=== PATIENT | male | born 1945 | race Caucasian/White ===

== ENCOUNTER → 2021-10-18 12:39 | Outpatient (CLI) | payer OTHER, SELFPAY ==
--- NOTE | 2021-10-18 | DI.ECHO.S_ITS ---
[facility]---------+ [facility] +---------+ : : [address] : [place] : : : : [id number] : : : : Phone: [phone] +---------+ Echocardiogram Report + + :Name: KEM LOVE Study Date: 10/18/2021 Height: 67 in : :[facility] ReadingLocation: Weight: 194 lb : : Gender: Male BSA: 2.0 m2 : :: 1945 Age: 76 yrs BP: 140/78 mmHg: :Reason For Study: HISTORY OF STENT PLACEMENT, BYPASS, DYSPNEA : :Ordering Physician: BERNARD, : : Performed By: Carmita Li : :Referring: MICHAEL WAGNER : + + Interpretation Summary The left ventricle is mild to moderately dilated. 6.1 cm in diameter. Previously 5.5 cm in diameter. Left ventricular ejection fraction is estimated to be 40 +/- 5%. Previous LVEF about 45 to 50%. Compared to the prior exam, the left ventricular function is reduced. There is akinesis of posterior lateral wall with severe hypokinesis of basal to mid inferior wall as well as basal to mid anterolateral wall. No significant change in wall motion abnormalities however rest of the LV segments less vigorous than the previous study. The right ventricle is grossly normal size. Right ventricular systolic function is mildly reduced. Suspect PMD of posterior mitral leaflet. Eccentric moderate mitral regurgitation. Mitral regurgitation has increased from the previous study. There is discrete nodular thickening of the non- coronary cusp. Decrease movement of noncoronary cusp however no significant aortic stenosis seen. Nodular density of noncoronary cusp seen in the previous study as well. The IVC is of normal diameter and collapses greater than 50% with a sniff. This suggests a low right atrial pressure of 3 mm Hg. Procedure: A two-dimensional transthoracic echocardiogram with color flow and Doppler was performed. The study quality was technically adequate. Comparison is made with the echocardiogram of 04/25/2016. The patient was in sinus rhythm with heart rates between 54-60 bpm during the exam. Left Ventricle: The left ventricle is mild-moderately dilated. There is normal left ventricular wall thickness. There is no thrombus. Left ventricular ejection fraction is estimated to be 40 +/- 5%. Compared to the prior exam, the left ventricular function is reduced. There is akinesis of posterior lateral wall with severe hypokinesis of basal to mid inferior wall as well as basal to mid anterolateral wall. No significant change in wall motion abnormalities however rest of the LV segments less vigorous than the previous study. Diastolic parameters suggest a relaxation abnormality of the left ventricle, consistent with probable normal filling pressures. Right Ventricle: The right ventricle is grossly normal size. Right ventricular systolic function is mildly reduced. Atria: The left atrium is mildly dilated. Right atrial size is normal. There is no Doppler evidence for an interatrial shunt. Mitral Valve: The mitral valve leaflets are mildly calcified. There is mild mitral annular calcification. Suspect PMD of posterior mitral leaflet. Eccentric moderate mitral regurgitation. Mitral regurgitation has increased from the previous study. There is moderate mitral regurgitation. The mitral regurgitant jet is eccentrically directed. Aortic Valve: The aortic valve is mildly calcified. There is discrete nodular thickening of the non- coronary cusp. Decrease movement of noncoronary cusp however no significant aortic stenosis seen. Nodular density of noncoronary cusp seen in the previous study as well. There is no hemodynamically significant valvular aortic stenosis. No aortic regurgitation is present. Tricuspid Valve: The tricuspid valve is normal in structure and function. There is mild tricuspid regurgitation. Pulmonary artery pressures cannot be estimated because of the lack of a measurable TR jet velocity. Pulmonic Valve: The pulmonic valve is not well seen, but is grossly normal. There is trace pulmonic regurgitation. Great Vessels: The aortic root is normal size. The dimensions of the ascending aorta are normal. The aortic arch could not be visualized. The IVC is of normal diameter and collapses greater than 50% with a sniff. This suggests a low right atrial pressure of 3 mm Hg. Pericardium/ Pleura There is no pericardial effusion. There is no pleural effusion. MMode/2D Measurements & Calculations LVIDd: 6.1 cm LVOT diam: 2.1 cm LVIDs: 5.0 cm Ao root diam: 3.3 cm FS: 18.5 % asc Aorta Diam: 3.5 cm IVSd: 0.95 cm LVPWd: 0.97 cm LV hancock. diameter/BSA (cm/m^2): 3.1 LV sys. diameter/BSA (cm/m^2): 2.5 LA A2 area: 21.0 cm2 RA long axis: 5.4 cm LA A4 area: 19.8 cm2 RA area: 18.9 cm2 LA length (vol): 5.6 cm RA vol: 56.4 ml LA vol: 63.2 ml RA : 28.2 ml/m2 LA vol index: 31.7 ml/m2 IVC diam: 2.0 cm TAPSE: 1.5 cm Doppler Measurements & Calculations Ao V2 max: 165.4 cm/sec LVOT Max David: 74.3 cm/sec Ao V2 mean: 122.9 cm/sec LV V1 max P.2 mmHg Ao max P.9 mmHg LV V1 VTI: 16.6 cm Ao mean P.6 mmHg PREM(I,D): 1.6 cm2 Ao V2 VTI: 36.0 cm PREM(V,D): 1.6 cm2 sev ratio: 0.46 PREM indexed to BSA (cm^2/m^2): 0.82 MV E max david: 56.8 cm/sec PA V2 max: 81.9 cm/sec MV A max david: 84.6 cm/sec PA V2 mean: 55.6 cm/sec MV E/A: 0.67 PA mean P.4 mmHg Med Peak E' David: 6.1 cm/sec PA pr(Accel): 22.5 mmHg E/E' med: 9.3 Lat Peak E' David: 7.6 cm/sec E/E' lat: 7.5 E/e' average: 8.4 MV dec time: 0.26 sec SV(LVOT): 59.2 ml Reading Physician:03:28 PM
== END ==
PROVIDERS: PCP Family Medicine
DX: R06.00 Dyspnea, unspecified (principal); I51.7 Cardiomegaly; I34.0 Nonrheumatic mitral (valve) insufficiency
CPT/HCPCS: 93306

== ENCOUNTER → 2023-06-21 14:14 | Outpatient (CLI) | payer OTHER, SELFPAY ==
--- NOTE | 2023-06-21 14:15 | DI.ECHO.S_ITS ---
[facility]---------+ [facility] +---------+ : : [address] : [place] : : : : [id number] : : : : Phone: [phone] +---------+ Echocardiogram Report + + :Name: KEM LOVE Study Date: 06/21/2023 Height: 66 in : :[facility] ReadingLocation: Weight: 200 lb : : Gender: Male BSA: 2.0 m2 : :: 1945 Age: 77 yrs BP: 149/88 mmHg: :Reason For Study: CONGESTIVE HEART FAILURE : :Ordering Physician: MILAGROS PRATT Performed By: Jos Joaquin : :Referring: MILAGROS PRATT : + + Interpretation Summary The ejection fraction is estimated to be 35-40%. Inferolateral, inferior rosales are hypokinetic. There is moderate mitral regurgitation. There is mild tricuspid regurgitation. The right ventricular systolic pressure is estimated to be at least 43 mmHg based on an estimated right atrial pressure of 3 mm Hg. Procedure: A two-dimensional transthoracic echocardiogram with color flow and Doppler was performed. The study quality was technically adequate. Comparison is made with the echocardiogram of 10/18/21. The patient was in normal sinus rhythm during the exam. The heart rate ranged between 60-77 bpm during the study. Left Ventricle: The left ventricle is mild-moderately dilated. There is normal left ventricular wall thickness. The ejection fraction is estimated to be 35-40%. There has been no significant change since the previous exam. Inferolateral, inferior rosales are hypokinetic. Right Ventricle: The right ventricle is normal in size and function. The right ventricular systolic function is normal. Atria: The left atrium is mildly dilated. Right atrial size is normal. Mitral Valve: The mitral valve is normal in structure and function. There is no mitral valve stenosis. There is moderate mitral regurgitation. There are multiple regurgitant jets present. Aortic Valve: The aortic valve is normal in structure and function. The aortic valve is mildly calcified. There is no aortic valve stenosis. No aortic regurgitation is present. Tricuspid Valve: The tricuspid valve is normal in structure and function. There has been no significant change since the previous study. There is mild tricuspid regurgitation. The right ventricular systolic pressure is estimated to be at least 43 mmHg based on an estimated right atrial pressure of 3 mm Hg. Pulmonic Valve: The pulmonic valve is normal in structure and function. There is no pulmonic valvular stenosis. There is no pulmonic valvular regurgitation. Great Vessels: The aortic root is normal size. The dimensions of the ascending aorta are normal. The inferior vena cava appeared normal. Pericardium/ Pleura There is no pericardial effusion. There is no pleural effusion. MMode/2D Measurements & Calculations LVIDd: 6.6 cm LVOT diam: 2.1 cm LVIDs: 5.3 cm Ao root diam: 2.9 cm FS: 20.0 % asc Aorta Diam: 3.3 cm IVSd: 0.89 cm LVPWd: 1.2 cm LV hancock. diameter/BSA (cm/m^2): 3.3 LV sys. diameter/BSA (cm/m^2): 2.6 LA A2 area: 24.6 cm2 RA long axis: 4.8 cm LA A4 area: 24.1 cm2 RA area: 16.7 cm2 LA length (vol): 5.7 cm RA vol: 49.5 ml LA vol: 88.5 ml RA : 24.8 ml/m2 LA vol index: 44.3 ml/m2 IVC diam: 2.1 cm RVD1 (basal): 4.0 cm RVD2 (mid): 3.6 cm TAPSE: 1.9 cm Doppler Measurements & Calculations Ao V2 max: 170.4 cm/sec LVOT Max David: 98.7 cm/sec Ao V2 mean: 127.1 cm/sec LV V1 max P.9 mmHg Ao max P.6 mmHg LV V1 VTI: 27.8 cm Ao mean P.0 mmHg PREM(I,D): 2.2 cm2 Ao V2 VTI: 44.0 cm PREM(V,D): 2.0 cm2 sev ratio: 0.63 PREM indexed to BSA (cm^2/m^2): 1.1 MV E max david: 84.8 cm/sec TR max david: 315.7 cm/sec MV A max david: 80.1 cm/sec TR max P.9 mmHg MV E/A: 1.1 PA V2 max: 73.4 cm/sec Med Peak E' David: 3.5 cm/sec PA V2 mean: 51.1 cm/sec E/E' med: 24.5 PA mean P.1 mmHg Lat Peak E' David: 3.0 cm/sec PA pr(Accel): 43.9 mmHg E/E' lat: 28.0 E/e' average: 26.3 MV dec time: 0.19 sec SV(LVOT): 95.4 ml Reading Physician:03:52 PM
== END ==
PROVIDERS: PCP Family Medicine; Referring Provider Internal Medicine Cardiovascular Disease; Visit Provider Internal Medicine Cardiovascular Disease
DX: I08.0 Rheumatic disorders of both mitral and aortic valves (principal); I50.20 Unspecified systolic (congestive) heart failure
CPT/HCPCS: 93306